=== PATIENT | female | born 1970 | race Caucasian/White ===

== ENCOUNTER 2021-05-23 23:59 | Emergency (ER) | payer SELFPAY ==
[~2021-05-23] VITALS: Ht 172.7 cm; Wt 74.8 kg
[2021-05-23 23:59] VITALS: BP 148/85
== END 2021-05-24 04:27 | disposition home or self-care (01) ==
LOC: ER 05-24 00:01
DX: M54.6 Pain in thoracic spine (principal); M54.5 Low back pain; M25.532 Pain in left wrist; M25.561 Pain in right knee; V49.49XA Driver injured in collision with other motor vehicles in traffic accident, initial encounter; Y93.89 Activity, other specified; Y92.488 Other paved roadways as the place of occurrence of the external cause; Y99.8 Other external cause status; Z98.890 Other specified postprocedural states; Z88.0 Allergy status to penicillin
CPT/HCPCS: 72074-TC; 72100-TC; 73110; 73564-TC

== ENCOUNTER 2022-12-12 08:24 | Emergency (ER) | payer OTHER ==
[~2022-12-12] VITALS: Ht 172.7 cm; Wt 77.1 kg
[2022-12-12 08:30] VITALS: BP 120/90
[2022-12-12] MEDS ORDERED: CLIN300C12 PO (09:36)
[2022-12-12] MEDS ORDERED: CLINDAMYCIN HCL 150 MG CAPSULE ONE (09:41)
[2022-12-12] MEDS ORDERED: IBUPROFEN 600 MG TABLET ONE (09:42)
--- NOTE | 2022-12-12 09:45 | NUR ---
CLEOCIN AND MOTRIN PO GIVEN INDICATED, JOSH WELL
--- NOTE | 2022-12-12 09:45 | NUR ---
Patient discharged to home in stable condition. Written and verbal after care instructions given. Patient verbalizes understanding of instruction.
[2022-12-12] MEDS ORDERED: IBUPROFEN 600 MG TABLET PO ONE (10:00)
[2022-12-12] MEDS ORDERED: CLINDAMYCIN HCL 150 MG CAPSULE PO ONE (10:00)
== END 2022-12-12 09:48 | disposition home or self-care (01) ==
LOC: ER 08:42
DX: J02.0 Streptococcal pharyngitis (principal); Z88.0 Allergy status to penicillin; Z60.2 Problems related to living alone